=== PATIENT | male | born 2005 | race Hispanic/Latino ===

== ENCOUNTER 2023-10-25 23:59 | Emergency (ER) | payer SELFPAY ==
[2023-10-26] MEDS ORDERED: Ondansetron ODT 4 MG TAB ONE (01:20)
[2023-10-26] MEDS ORDERED: Dicyclomine 20 MG TAB ONE (01:20)
[2023-10-26 01:32] LABS: #Basophils 0.06 10x3/uL (0.0-0.2); #Eosinphils 0.21 10x3/uL (0.0-0.5); #Monocytes 0.82 10x3/uL (0.0-1.1); #Neutrophils 5.58 10x3/uL (1.5-8.4); %Basophils 0.7 % (0.0-2.0); %Eosinophils 2.5 % (0.0-6.0); %Lymphocytes 21.3 % (18.0-47.0); %Monocytes 9.7 % (0.0-10.0); %Neutrophils 65.7 % (40.0-75.0); Hematocrit 46.8 % (38.8-50.0); Hemoglobin 16.1 g/dL (13.5-17.5); Mean Corpuscular HGB CONC 34.4 g/dL (32.0-36.0); Mean Corpuscular Hemoglobin 28.9 pg (27.0-33.0); Mean Platelet Volume 11.1 fL (7.4-10.4); Platelet Count 220 10x3/uL (150-450); RBC Distribution Width 13.1 % (11.5-14.5); Red Blood Cell (RBC) Count 5.57 10x6/uL (4.32-5.72); White Blood Cell (WBC) Count 8.5 10x3/uL (3.5-10.5)
[2023-10-26 01:46] LABS: ALT (SGPT) 43 U/L (8-55); AST (SGOT) 19 U/L (5-34); Albumin 4.2 g/dL (3.5-5.0); Alkaline Phosphatase 66 U/L (50-130); Anion Gap 14 mmol/L (10-20); BUN (Urea Nitrogen) 18 mg/dL (8.9-20.6); Bilirubin, Total 0.2 mg/dL (0.2-1.2); Calc. Creatinine Clearance 0 mL/min (70-130); Carbon Dioxide 27 mmol/L (22-29); Chloride 105 mmol/L (98-107); Estimated GFR 81; Globulin 3.8 g/dL (2.4-3.5); Glucose 116 mg/dL (70-105); Potassium 4.3 mmol/L (3.5-5.1); Sodium 142 mmol/L (136-145)
== END 2023-10-26 02:20 | disposition home or self-care (01) ==
LOC: CSHERS 23:59
DX: R14.0 Abdominal distension (gaseous) (principal)
CPT/HCPCS: 36415; 80053; 85025; 99284; Q0162